=== PATIENT | male | born 1990 | race Caucasian/White ===

== ENCOUNTER → 2018-02-06 16:50 | Emergency (ER) | payer MEDICAID ==
[~2018-02-06 16:50] MED LIST: Sodium Bicarbonate 8.4% SYR* 10 ML SYRINGE IV ONE
--- NOTE | 2018-02-06 18:00 | ED ---
Skin Complaint - HPI Summary HPI Summary: [id number] patient presents with left ring finger laceration to the distal pad. He reports this occurred at work earlier this morning. He accidentally sliced his finger on a metal door handle. He washed this immediately under cold running water and wrapped it however he reports still bleeding at 1700 tonight so decided to come and get checked out. He denies numbness, tingling, weakness and has no pain. He reports his tetanus is up-to- date (within the past 5 years). He is concerned and wants to get back to work. 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 - History of Current Complaint Chief Complaint: EDLacSutureRecheck Time Seen by Provider: 02/06/18 17:23 Stated Complaint: LT RING FINGER LAC Hx Obtained From: Patient Pain Intensity: 0 - Allergy/Home Medications Allergies/Adverse Reactions: Allergies Allergy/AdvReac Type Severity Reaction Status Date / Time Penicillins Allergy Rash Verified 02/06/18 17:04 PMH/Surg Hx/FS Hx/Imm Hx Previously Healthy: Yes Endocrine/Hematology History: Denies: Hx Anticoagulant Therapy, Hx Blood Disorders, Hx Diabetes, Autoimmune Disease Cardiovascular History: Reports: Other Cardiovascular Problems/Disorders - CARDIOMEGALY Denies: Hx Congestive Heart Failure, Hx Hypertension Neurological History: Reports: Other Neuro Impairments/Disorders - psych problems Psychiatric History: Reports: Hx Substance Abuse - ETOH Infectious Disease History: No Infectious Disease History: Denies: Traveled Outside the [place] in Last 30 Days - Social History Occupation: Employed Full-time - accountant certified public at [employer] Lives: Alone Alcohol Use: None - h/o ETOH abuse - in remission x 8 months Substance Use Type: Reports: None Hx Tobacco Use: Yes Smoking Status (MU): Current Every Day Smoker - 1.5 PPD Type: Cigarettes Review of Systems Constitutional: Negative Positive: no symptoms reported Musculoskeletal: Negative Skin: Other - lac Neurological: Negative Psychological: Normal All Other Systems Reviewed And Are Negative: Yes Physical Exam Triage Information Reviewed: Yes Vital Signs On Initial Exam: Initial Vitals Temp Pulse Resp BP Pulse Ox 99.2 F 89 19 159/101 98 02/06/18 17:02 02/06/18 17:02 02/06/18 17:02 02/06/18 17:02 02/06/18 17:02 Vital Signs Reviewed: Yes Appearance: Positive: Well-Appearing, No Pain Distress, Well-Nourished Skin: Positive: Warm, Skin Color Reflects Adequate Perfusion - 1cm lac over distal pad of Lt ring finger - actively bleeding ENT: Positive: Hearing grossly normal Respiratory/Lung Sounds: Positive: Breath Sounds Present Cardiovascular: Positive: Pulses are Symmetrical in both Upper and Lower Extremities Musculoskeletal: Positive: Normal, Strength/ROM Intact Neurological: Positive: Normal, Sensory/Motor Intact, Alert, Oriented to Person Place, Time Psychiatric: Positive: Normal Procedures - Laceration/Wound Repair 1 Location: upper extremity - Lt ring finger Anesthesia: Digital, Lido, Bicarb Length, Depth and Shape: 1cm x 2.5mm Betadine Prep?: Yes Irrigated w/ Saline (ccs): 50 Laceration/Wound Explored: clean Closure: Single Layer Suture Type: Nylon - 5-0 Number of Sutures: 2 Layer Closure?: No Sterile Dressing Applied?: Yes - triple anbx ointment + gauze + coban - hemodynamically table Diagnostics - Vital Signs Vital Signs Temp Pulse Resp BP Pulse Ox 02/06/18 17:02 99.2 F 89 19 159/101 98 - Laboratory Lab Statement: Any lab studies that have been ordered have been reviewed, and results considered in the medical decision making process. Course/Dx - Course Course Of Treatment: Attempted hemostasis with pressure and elevation however pt 's fingered started bleeding again with gentle during cleaning. Sutures were placed. Pt tolerated well. - Diagnoses Provider Diagnoses: Laceration of left middle finger Discharge - Sign-Out/Discharge Documenting (check all that apply): Patient Departure - Discharge Plan Condition: Stable Disposition: HOME Patient Education Materials: Care For Your Stitches (ED), Finger Laceration (ED ) Forms: *Work Release Referrals: [facility] [Outside] Additional Instructions: Keep Dressing clean and dry and in place for the next 48 hours. After that time you may remove dressing, gently wash wound with soap and water, rinse well and pat dry with clean cloth. Reapply triple antibiotic ointment and clean gauze dressing. Continue this daily until sutures are removed. Call your PCP ( or [facility]) to schedule wound recheck and suture removal in 10-14 days. Contact information included here. For pain/swelling, you may rest, ice and elevate as well as take ibuprofen with food as needed. * If you develop redness, swelling, streaking, purulent drainage, fevers or chills, seek medical attention sooner or return to the emergency department. - Billing Disposition and Condition Condition: STABLE Disposition: Home
[2018-02-06 19:52] VITALS: BP 124/68
== END | disposition home or self-care (01) ==
LOC: ED 16:50
DX: S61.215A Laceration without foreign body of left ring finger without damage to nail, initial encounter (principal); W45.8XXA Other foreign body or object entering through skin, initial encounter; Y92.9 Unspecified place or not applicable; Y99.0 Civilian activity done for income or pay; D89.89 Other specified disorders involving the immune mechanism, not elsewhere classified; F17.210 Nicotine dependence, cigarettes, uncomplicated
CPT/HCPCS: 12001; 96374; 99282